=== PATIENT | female | born 1975 | race Caucasian/White ===

== ENCOUNTER 2024-02-05 15:39 | Emergency (ER) | payer OTHER, SELFPAY ==
--- NOTE | ~2024-02-05 | CT_ITS ---
CLINICAL INDICATION: Rectal pain. COMPARISON: None. TECHNIQUE: Computed tomography (CT) of the pelvis was performed following the administration of 100 m L of Omnipaque 350 intravenous contrast. The dose-length product was 152.52 mGy-cm. FINDINGS/OBSERVATIONS: Gastrointestinal tract: Moderate fecal stasis Appendix:The appendix is not definitively visualized. However, no pericecal inflammatory change is id entified suggest the presence of acute appendicitis. Vasculature: Unremarkable Lymph nodes: No pathologically enlarged or morphologically within the visualized retroperitoneum or p carol. Pelvic structures: Intrauterine device is present. The bladder is decompressed, and otherwise unremarkable. Body wall and musculoskeletal: No abnormal attenuation or contrast enhancement within the rectum or surrounding soft tissues. IMPRESSION: Unremarkable contrast-enhanced CT examination of the pelvis, as detailed above. Reviewed, dictated and finalized at location [facility]
[2024-02-05 16:02] VITALS: BP 168/99; PULSE 56; RESP 18; TEMP 36.3; O2SAT 100
--- NOTE | 2024-02-05 16:54 | ED.GENADULT ---
HPI - General Adult General Chief complaint: Unspecified <ALYSSA Gautam Last Filed: 02/05/24 17:09> Stated complaint: in so much pain <ALYSSA Gautam Last Filed: 02/05/24 17:09> Time Seen by Provider: 02/05/24 16:54 <Ivone Wood PA-C - Last Filed: 02/05/24 17:09> Focused HPI: Patient is 48-year-old female who presents the ED with report of rectal pain. 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 She saw a GI specialist at [facility] at that time and was offered surgery which she declined at that time. Has been using Lidocaine creams, stool softeners, has lost weight and changed her diet. States it had been healing and doing better, but she recently ate fried chicken and meatloaf and states it has torn her apart. She feels the wound has reopened and is very raw. C/o pain with sitting, walking, having BMs. Denies bleeding. Denies fevers. Denies abd pain. GENERAL: Mildly uncomfortable-appearing, thin, and in no acute distress. HEAD: Normocephalic, atraumatic. CHEST: Clear to auscultation. ?No respiratory distress. HEART: Regular rate and rhythm.? NEURO: ?Alert and oriented x3. Patient screened in triage and initial orders placed.? ?Additional care and disposition to be based upon?diagnostic testing and treatment. <Ivone Wood PA-C - Last Filed: 02/05/24 17:09> Focused HPI: Patient is 48-year-old female who presents to the ED with report of rectal pain. 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 She saw a GI specialist at [facility] at that time and was offered surgery which she declined at that time. Has been using Lidocaine creams, stool softeners, has lost weight and changed her diet. States it had been healing and doing better, but she recently ate fried chicken and meatloaf and states it has torn her apart. She feels the wound has reopened and is very raw. C/o pain with sitting, walking, having BMs. Denies bleeding. Denies fevers. Denies abd pain. GENERAL: Mildly uncomfortable-appearing, thin, and in no acute distress. HEAD: Normocephalic, atraumatic. CHEST: Clear to auscultation. ?No respiratory distress. HEART: Regular rate and rhythm.? NEURO: ?Alert and oriented x3. Patient screened in triage and initial orders placed.? ?Additional care and disposition to be based upon?diagnostic testing and treatment. <Scarlet Reese PA-C - Last Filed: 02/05/24 19:17> Source: patient <Ivone Wood PA-C - Last Filed: 02/05/24 17:09> Mode of arrival: ambulatory <ALYSSA Gautam Last Filed: 02/05/24 17:09> Limitations: no limitations <ALYSSA Gautam Last Filed: 02/05/24 17:09> Related Data Home medications: Home Medications Medication Instructions Recorded Confirmed antiarthritic combination no.2 900 mg PO DAILY 07/17/20 mg tablet (glucosamine-chondroitin) cholecalciferol (vitamin D3) 25 25 mcg PO DAILY 07/17/20 mcg (1,000 unit) capsule <ALYSSA Gautam Last Filed: 02/05/24 17:09> Allergies/adverse reactions: Allergies Allergy/AdvReac Type Severity Reaction Status Date / Time No Known Allergies Allergy Verified 04/17/20 09:59 <Ivone Wood PA-C - Last Filed: 02/05/24 17:09> Review of Systems Review of Systems: CONSTITUTIONAL: Denies fever GASTROINTESTINAL: Denies abdominal pain, nausea, vomiting <Scarlet Reese PA-C - Last Filed: 02/05/24 19:17> All systems reviewed & are unremarkable except as noted in HPI and below <Scarlet Reese PA-C - Last Filed: 02/05/24 19:17> [facility] Past Medical History Medical History: Medical History (Updated 02/05/24 @ 19:06 by Scarlet Reese PA-C) Depression Vitamin deficiency <ALYSSA Gautam Last Filed: 02/05/24 17:09> Social History Social History: Social History Smoking status: Never smoker Tobacco type: smokeless tobacco Alcohol intake: current Alcohol use details: wine socially Occupation/Education: occupation Additional occupation/education comments: [employer] Gender identity (if verbalized by the patient): Female <ALYSSA Gautam Last Filed: 02/05/24 17:09> Exam Narrative: GENERAL: Well-appearing, well-nourished, and in no acute distress. HEAD: Normocephalic, atraumatic. EYES: EOMI. EXTREMITIES: Normal range of motion. No edema. SKIN: Warm, dry, no rash. NEURO: No focal deficits. Alert and oriented x3. PSYCH: Normal mood and affect RECTAL: No obvious external hemorrhoids or fissures. Skin tag present <ALYSSA Lizama Last Filed: 02/05/24 19:17> Course Course Emergency Course: Patient updated on her workup and agrees with plan of care <ALYSSA Lizama Last Filed: 02/05/24 19:17> Vital Signs Vital signs: Vital Signs Temperature 97.4 F L 02/05/24 16:02 Pulse Rate 56 L 02/05/24 16:02 Respiratory Rate 18 02/05/24 16:02 Blood Pressure 168/99 H 02/05/24 16:02 Pulse Oximetry 100 02/05/24 16:02 Oxygen Delivery Room Air 02/05/24 16:02 Temperature 97.4 F L 02/05/24 16:02 Pulse Rate 88 02/05/24 18:00 Respiratory Rate 14 02/05/24 18:00 Blood Pressure 141/89 H 02/05/24 18:00 Pulse Oximetry 98 02/05/24 18:00 Oxygen Delivery Room Air 02/05/24 18:00 <ALYSSA Gautam Last Filed: 02/05/24 17:09> Vital Signs Temperature 97.4 F L 02/05/24 16:02 Pulse Rate 56 L 02/05/24 16:02 Respiratory Rate 18 02/05/24 16:02 Blood Pressure 168/99 H 02/05/24 16:02 Pulse Oximetry 100 02/05/24 16:02 Oxygen Delivery Room Air 02/05/24 16:02 Temperature 97.4 F L 02/05/24 16:02 Pulse Rate 88 02/05/24 18:00 Respiratory Rate 14 02/05/24 18:00 Blood Pressure 141/89 H 02/05/24 18:00 Pulse Oximetry 98 02/05/24 18:00 Oxygen Delivery Room Air 02/05/24 18:00 <Scarlet Reese PA-C - Last Filed: 02/05/24 19:17> Medical Decision Making MDM Narrative Medical decision making narrative: MSE by NICK in triage. <ALYSSA Gautam Last Filed: 02/05/24 17:09> MSE by NICK in triage. Patient presents to the emergency department for rectal pain. Reports earlier this year she was diagnosed with a fissure. Has seen Gastroenterology for this. She is afebrile and nontoxic appearing. CBC with mild leukocytosis to 10.3. Metabolic panel with normal appearing kidney function. CT of the pelvis is without acute findings. Patient was instructed on continued care constipation. 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 She was given warnings to return to the ER <ALYSSA Lizama Last Filed: 02/05/24 19:17> Differential Diagnosis Differential Diagnosis: Fissure, hemorrhoid <ALYSSA Lizama Last Filed: 02/05/24 19:17> Vital Signs Vital Signs: Vital Signs Temperature 97.4 F L 02/05/24 16:02 Pulse Rate 56 L 02/05/24 16:02 Respiratory Rate 18 02/05/24 16:02 Blood Pressure 168/99 H 02/05/24 16:02 Pulse Oximetry 100 02/05/24 16:02 Oxygen Delivery Room Air 02/05/24 16:02 Temperature 97.4 F L 02/05/24 16:02 Pulse Rate 88 02/05/24 18:00 Respiratory Rate 14 02/05/24 18:00 Blood Pressure 141/89 H 02/05/24 18:00 Pulse Oximetry 98 02/05/24 18:00 Oxygen Delivery Room Air 02/05/24 18:00 <Ivone Wood PA-C - Last Filed: 02/05/24 17:09> Vital Signs Temperature 97.4 F L 02/05/24 16:02 Pulse Rate 56 L 02/05/24 16:02 Respiratory Rate 18 02/05/24 16:02 Blood Pressure 168/99 H 02/05/24 16:02 Pulse Oximetry 100 02/05/24 16:02 Oxygen Delivery Room Air 02/05/24 16:02 Temperature 97.4 F L 02/05/24 16:02 Pulse Rate 88 02/05/24 18:00 Respiratory Rate 14 02/05/24 18:00 Blood Pressure 141/89 H 02/05/24 18:00 Pulse Oximetry 98 02/05/24 18:00 Oxygen Delivery Room Air 02/05/24 18:00 <ALYSSA Lizama Last Filed: 02/05/24 19:17> Lab Data Lab results reviewed: Yes I reviewed the patient's lab results. <Scarlet Reese PA-C - Last Filed: 02/05/24 19:17> Result diagrams: 02/05/24 17:40 02/05/24 17:40 <ALYSSA Gautam Last Filed: 02/05/24 17:09> Labs: Lab Results 02/05/24 02/05/24 Range/Units 17:40 18:11 WBC 10.3 H (4.5-10.0) K/mm3 RBC 4.64 (4.2-5.4) M/mm3 Hgb 14.7 (12.0-15.0) g/dL Hct 42.9 (37.0-47.0) % MCV 92.5 (80-100) fl MCH 31.7 (26-34) pg MCHC 34.3 (32-36) g/dl RDW 12.7 (11.5-14.5) % Plt Count 307 (150-375) k/mm3 MPV 10.0 (7.4-10.4) fl Immature Gran % (Auto) 0.3 (0-0.5) % Neut % (Auto) 65.8 (45.5-73.1) % Lymph % (Auto) 24.6 (18.3-44.2) % Ellis % (Auto) 6.7 (2.6-8.5) % Eos % (Auto) 2.3 (0-4.4) % Baso % (Auto) 0.3 (0.2-1.2) % Lymph # (Auto) 2.54 (0.9-3.2) K/mm3 Ellis # (Auto) 0.7 H (0.1-0.6) K/mm3 Eos # (Auto) 0.2 (0-0.3) K/mm3 Baso # (Auto) 0.0 (0.0-0.1) K/mm3 Abs Immat Gran (auto) 0.03 (0.00-0.031) K/mm3 Absolute Neuts (auto) 6.8 H (1.3-6.7) K/mm3 Absolute Nucleated RBC 0.000 (0.0-0.012) K/mm3 Nucleated RBC % 0.0 (0.0-0.2) % Sodium 138 (137-145) mmol/L Potassium 3.8 (3.4-5.0) mmol/L Chloride 103 (98-107) mmol/L Carbon Dioxide 27 (22-30) mmol/L Anion Gap 8 (4-12) mmol/L BUN 17 (7-17) mg/dL Creatinine 0.90 (0.7-1.0) mg/dL Estim Creat Clear Calc 51 ml/min Estimated GFR > 60 (59 - ) Glucose 93 (65-110) mg/dL Calcium 9.6 (8.4-10.2) mg/dL POC Urine HCG, Qual Negative (Negative) <Ivone Wood PA-C - Last Filed: 02/05/24 17:09> Lab Results 02/05/24 02/05/24 Range/Units 17:40 18:11 WBC 10.3 H (4.5-10.0) K/mm3 RBC 4.64 (4.2-5.4) M/mm3 Hgb 14.7 (12.0-15.0) g/dL Hct 42.9 (37.0-47.0) % MCV 92.5 (80-100) fl MCH 31.7 (26-34) pg MCHC 34.3 (32-36) g/dl RDW 12.7 (11.5-14.5) % Plt Count 307 (150-375) k/mm3 MPV 10.0 (7.4-10.4) fl Immature Gran % (Auto) 0.3 (0-0.5) % Neut % (Auto) 65.8 (45.5-73.1) % Lymph % (Auto) 24.6 (18.3-44.2) % Ellis % (Auto) 6.7 (2.6-8.5) % Eos % (Auto) 2.3 (0-4.4) % Baso % (Auto) 0.3 (0.2-1.2) % Lymph # (Auto) 2.54 (0.9-3.2) K/mm3 Ellis # (Auto) 0.7 H (0.1-0.6) K/mm3 Eos # (Auto) 0.2 (0-0.3) K/mm3 Baso # (Auto) 0.0 (0.0-0.1) K/mm3 Abs Immat Gran (auto) 0.03 (0.00-0.031) K/mm3 Absolute Neuts (auto) 6.8 H (1.3-6.7) K/mm3 Absolute Nucleated RBC 0.000 (0.0-0.012) K/mm3 Nucleated RBC % 0.0 (0.0-0.2) % Sodium 138 (137-145) mmol/L Potassium 3.8 (3.4-5.0) mmol/L Chloride 103 (98-107) mmol/L Carbon Dioxide 27 (22-30) mmol/L Anion Gap 8 (4-12) mmol/L BUN 17 (7-17) mg/dL Creatinine 0.90 (0.7-1.0) mg/dL Estim Creat Clear Calc 51 ml/min Estimated GFR > 60 (59 - ) Glucose 93 (65-110) mg/dL Calcium 9.6 (8.4-10.2) mg/dL POC Urine HCG, Qual Negative (Negative) <Scarlet Reese PA-C - Last Filed: 02/05/24 19:17> Imaging Data Radiologist's impression: ITS Impressions Pelvis CT 02/05/24 18:40 IMPRESSION: Unremarkable contrast-enhanced CT examination of the pelvis, as detailed above. <ALYSSA Lizama Last Filed: 02/05/24 19:17> Critical Care Time Critical Care Time Critical Care Time: No <Scarlet Reese PA-C - Last Filed: 02/05/24 19:17> Discharge Plan Discharge Clinical Impression: Anal or rectal pain <ALYSSA Gautam Last Filed: 02/05/24 17:09> Patient Disposition: Home, Self-Care <ALYSSA Gautam Last Filed: 02/05/24 17:09> Condition: Stable <ALYSSA Gautam Last Filed: 02/05/24 17:09> Instructions: Rectal Pain (ED) <ALYSSA Gautam Last Filed: 02/05/24 17:09> Additional Instructions: Return to the ER if you experience fever, abdominal pain with nausea and vomiting, redness and swelling of the area, blood in the stool, or any other symptoms that are concerning to you Remain well hydrated. Increase fruit and vegetables in your diet. Apply vitamin E cream to the area twice daily as needed for discomfort Follow up with your flight engineer helicopter <ALYSSA Gautam Last Filed: 02/05/24 17:09> Prescriptions: New vitamin E Cream 1 applic topical QAM AND QHS PRN (Reason: skin irritation) Qty: 57 0RF No Action cholecalciferol (vitamin D3) 25 mcg (1,000 unit) capsule 25 mcg PO DAILY glucosamine-chondroitin 900 mg tablet PO DAILY <ALYSSA Gautam Last Filed: 02/05/24 17:09> Follow-up/Referrals: Francheska,Cristal Hines NP [Primary Care Provider] - <ALYSSA Gautam Last Filed: 02/05/24 17:09>
[2024-02-05 17:49] LABS: Basophils Percent Auto 0.3 % (0.2-1.2); Eosinophils Absolute Auto 0.2 K/mm3 (0-0.3); Eosinophils Percent Auto 2.3 % (0-4.4); Hematocrit 42.9 % (37.0-47.0); Hemoglobin 14.7 g/dL (12.0-15.0); Immature Granulocyte Absolute 0.03 K/mm3 (0.00-0.031); Immature Granulocyte Percent A 0.3 % (0-0.5); Lymphocytes Absolute Auto 2.54 K/mm3 (0.9-3.2); Lymphocytes Percent Auto 24.6 % (18.3-44.2); Mean Corpuscular HGB Conc 34.3 g/dl (32-36); Mean Corpuscular Hemoglobin 31.7 pg (26-34); Mean Corpuscular Volume 92.5 fl (80-100); Monocytes Absolute Auto 0.7 K/mm3 (0.1-0.6); Monocytes Percent Auto 6.7 % (2.6-8.5); Neutrophils Absolute Auto 6.8 K/mm3 (1.3-6.7); Neutrophils Percent Auto 65.8 % (45.5-73.1); Platelet Count Result 307 k/mm3 (150-375); Red Blood Count 4.64 M/mm3 (4.2-5.4); Red Cell Distribution Width 12.7 % (11.5-14.5); White Blood Count 10.3 K/mm3 (4.5-10.0)
[2024-02-05 17:59] LABS: Anion Gap 8 mmol/L (4-12); Blood Urea Nitrogen 17 mg/dL (7-17); Calcium 9.6 mg/dL (8.4-10.2); Carbon Dioxide 27 mmol/L (22-30); Chloride 103 mmol/L (98-107); Estimated CRCL calculation 51 ml/min; Estimated Glomerular Filt Rate > 60; Glucose 93 mg/dL (65-110); Potassium 3.8 mmol/L (3.4-5.0); Sodium 138 mmol/L (137-145)
[2024-02-05 18:00] VITALS: BP 141/89; PULSE 88; RESP 14; O2SAT 98
[2024-02-05] MEDS: HYDROcodone/acetaminophen (*CRX) 5-325 MG TABLET 1 TAB PO (18:09)
[2024-02-05 18:13] LABS: BEDSIDEPREGUCG Negative (Negative)
== END 2024-02-05 19:28 | disposition home or self-care (01) ==
PROVIDERS: Physician Assistant; Emergency Provider Physician Assistant; PCP Nurse Practitioner Obstetrics & Gynecology
DX: K62.89 Other specified diseases of anus and rectum (principal); E56.9 Vitamin deficiency, unspecified; F17.220 Nicotine dependence, chewing tobacco, uncomplicated
CPT/HCPCS: 36415; 72193; 80048; 81025; 85025; 99284; A9270; Q9967

== ENCOUNTER 2024-02-25 21:07 | Emergency (ER) | payer OTHER, SELFPAY ==
--- NOTE | 2024-02-25 23:17 | ED.WOUNDLAC ---
HPI - Wound/Laceration General Chief Complaint: Wound/Laceration Stated Complaint: sliced finger while cuttign onion Time Seen by Provider: 02/25/24 22:15 Source: patient Mode of arrival: ambulatory Limitations: no limitations History of Present Illness HPI narrative: This is a 48 year old female that presents to the ER for a laceration to the left ring finger. Sustained while cutting onions. She was not able to get the bleeding to stop at home which prompted her to be seen. She is unsure of her last tetanus vaccination. Denies decreased ROM or numbness. Related Data Home Medications Medication Instructions Recorded Confirmed antiarthritic combination no.2 900 mg PO DAILY 07/17/20 mg tablet (glucosamine-chondroitin) cholecalciferol (vitamin D3) 25 25 mcg PO DAILY 07/17/20 mcg (1,000 unit) capsule Allergies Allergy/AdvReac Type Severity Reaction Status Date / Time No Known Allergies Allergy Verified 04/17/20 09:59 Review of Systems Review of Systems: CONSTITUTIONAL: Denies fever SKIN: Reports laceration NEUROLOGIC: Denies numbness All systems reviewed & are unremarkable except as noted in HPI and below PMFSH Past Medical History Medical History (Updated 02/26/24 @ 00:26 by Scarlet Reese PA-C) Depression Vitamin deficiency Social History Social History Smoking status: Never smoker Tobacco type: smokeless tobacco Alcohol intake: current Alcohol use details: wine socially Occupation/Education: occupation 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 HEAD: Normocephalic, atraumatic. EYES: EOMI. EXTREMITIES: Normal range of motion. No edema. Small skin avulsion tip of the left 4th finger SKIN: Warm, dry, no rash. NEURO: No focal deficits. Alert and oriented x3. PSYCH: Normal mood and affect Course Course Emergency Course: patient educated on further wound care Vital Signs Vital signs: Vital Signs Temperature 97.9 F 02/25/24 23:21 Pulse Rate 54 L 02/25/24 23:21 Respiratory Rate 14 02/25/24 23:21 Blood Pressure 132/70 02/25/24 23:21 Pulse Oximetry 99 02/25/24 23:21 Temperature 97.9 F 02/25/24 23:21 Pulse Rate 54 L 02/25/24 23:21 Respiratory Rate 14 02/25/24 23:21 Blood Pressure 132/70 02/25/24 23:21 Pulse Oximetry 99 02/25/24 23:21 Procedures Laceration Laceration 1: Date: 02/26/24 Time: 00:30 Site: hand Side (If applicable): left Size (cm): 1 Description: other ( avulsion) Depth: simple, single layer Pre-repair: irrigated ====== Skin Level ====== ====== Subcutaneous Layer ====== ====== Muscle Layer ====== ====== Tendon Layer ====== Dressing: wound irrigated and bleeding controlled with Surgicel MDM - Wound/Laceration MDM Narrative Medical decision making narrative: patient presents to the emergency department for a skin avulsion. Wound irrigated and bleeding controlled with Surgicel. Updated on tetanus vaccination. Educated on further wound care. She was given warnings to return to the ER Differential Diagnosis Differential diagnosis: Likely laceration, abrasion and avulsion of skin Critical Care Time Critical Care Time Critical Care Time: No Discharge Plan Discharge Clinical Impression: Avulsion of skin Patient Disposition: Home, Self-Care Condition: Stable Instructions: Antibiotic Form, Skin Avulsion (ED) Additional Instructions: Return to the emergency department if you experience fever, redness or swelling of your wound, abnormal drainage from your wound, or any other symptoms that are concerning to you. Leave your entire bandage in place until tomorrow night. Leave the bottom layer of hemostatic gauze on until if falls off. When it does clean the area with mild soap and water and apply antibiotic ointment and a nonstick bandage. Take oral antibiotic as prescribed to prevent infection Follow-up with your primary care doctor for wound check Prescriptions: New cephalexin 500 mg capsule 500 mg PO Q8H 5 Days Qty: 15 0RF No Action cholecalciferol (vitamin D3) 25 mcg (1,000 unit) capsule 25 mcg PO DAILY glucosamine-chondroitin 900 mg tablet PO DAILY vitamin E Cream 1 applic topical QAM AND QHS PRN (Reason: skin irritation) Qty: 57 0RF Follow-up/Referrals: Marco,MD Tomasz [Primary Care Provider] -
[2024-02-25 23:21] VITALS: BP 132/70; PULSE 54; RESP 14; TEMP 36.6; O2SAT 99
[2024-02-25] MEDS: TETANUS,DIPHTHERIA,AC PERTUSSIS ADULT (0.5 ML) BOOSTRIX IM (23:31)
[2024-02-26 00:36] VITALS: BP 125/75; PULSE 74; RESP 14; TEMP 36.9; O2SAT 99
== END 2024-02-26 00:37 | disposition home or self-care (01) ==
PROVIDERS: Emergency Provider Physician Assistant; PCP Family Medicine
DX: S61.215A Laceration without foreign body of left ring finger without damage to nail, initial encounter (principal); Z23 Encounter for immunization; E55.9 Vitamin D deficiency, unspecified; F17.220 Nicotine dependence, chewing tobacco, uncomplicated; W26.0XXA Contact with knife, initial encounter; Y93.G1 Activity, food preparation and clean up
CPT/HCPCS: 90471; 90715; 99283; J2003

== ENCOUNTER 2024-11-26 19:26 | Emergency (ER) | payer OTHER, SELFPAY ==
[2024-11-26 19:37] VITALS: BP 120/85; PULSE 67; RESP 67; TEMP 36.4; O2SAT 98
--- NOTE | 2024-11-26 19:40 | ED_ITS ---
HPI - URI/Sore Throat General Chief Complaint: Upper Respiratory Infection Stated Complaint: COLD/COUGH Time Seen by Provider: 11/26/24 19:40 Source: patient Mode of arrival: ambulatory Limitations: no limitations History of Present Illness HPI Narrative: 49-year-old female presents with complaint of nasal congestion, sinus pressure, postnasal drainage, chest congestion, coughing for 7 8 days. Afebrile. Take ov [id number] DayQuil NyQuil cold and flu without relief of symptoms. For breath with exertion. No sore throat. Denies nausea vomiting. No chest pain or shortness breath. All systems reviewed and negative except as noted. Related Data Home Medications ?Medication ?Instructions ?Recorded ?Confirmed ?Last Taken ?Type antiarthritic combination no.2 900 mg PO DAILY 1 Unknown History mg tablet (glucosamine-chondroitin) cholecalciferol (vitamin D3) 25 25 mcg PO DAILY Unknown History mcg (1,000 unit) capsule Allergies Allergy/AdvReac Type Severity Reaction Status Date / Time No Known Allergies Allergy Verified 11/26/24 19:43 [facility] Past Medical History Medical History (Updated 11/26/24 @ 19:48 by Sofia Daugherty NP) Depression Vitamin deficiency Social History Social History Smoking status: Never smoker Tobacco type: smokeless tobacco Alcohol intake: current Alcohol use details: wine socially Occupation/Education: occupation Additional occupation/education comments: [employer] Gender identity (if verbalized by the patient): Female Comments At time of signature, agree with nursing past medical, surgical, social and family history. There is no relevant family history pertinent to the presenting complaint. Exam Narrative: GENERAL: This is a well-nourished, well-developed patient, in no apparent distress. HEAD: normocephalic, atraumatic. EYES: PERRL. Sclera clear/white. Vision is grossly intact. EARS: External ears normal, auditory canals clear and without drainage, TMs normal without perforation. Hearing grossly intact. NOSE: External nose normal with no clear nasal drainage, reports frontal sinus tenderness on palpation. THROAT: Mucous membranes moist, erythema postnasal drainage NECK: Neck supple, non-tender without lymphadenopathy, masses or thyromegaly. CARDIOVASCULAR: Regular rate and rhythm without murmurs, gallops, or rubs. RESPIRATORY: Clear to auscultation. Breath sounds equal bilaterally. No wheezes, rales, or rhonchi. Cough is harsh and wet sounding SKIN: warm, Dry, intact with no suspicious lesions or rash, good texture and turgor. NEURO: awake, alert, and oriented to person, place and time. There were no obvious focal neurologic abnormalities. EXTREMITIES: No joint tenderness, effusion, or edema noted. Course Course Level of Care: Express Care Visit Vital Signs Vital signs: Vital Signs Temperature 36.4 C L 11/26/24 19:37 Pulse Rate 67 11/26/24 19:37 Respiratory Rate 67 H 11/26/24 19:37 Blood Pressure 120/85 11/26/24 19:37 Pulse Oximetry 98 11/26/24 19:37 Temperature 36.4 C L 11/26/24 19:37 Pulse Rate 67 11/26/24 19:37 Respiratory Rate 67 H 11/26/24 19:37 Blood Pressure 120/85 11/26/24 19:37 Pulse Oximetry 98 11/26/24 19:37 Reviewed MDM - URI/Sore Throat MDM Narrative Medical decision making narrative: Patient is well-appearing, nontoxic. Will treat with doxycycline. Patient agrees with care. Differential Diagnosis Differential diagnosis: Likely upper respiratory infection, sinusitis, viral infection and bronchitis Discharge Plan Discharge Clinical Impression: Acute bronchitis Qualifiers: Bronchitis organism: unspecified organism Qualified Code(s): J20.9 - Acute bronchitis, unspecified Patient Disposition: Home Condition: Stable Instructions: Antibiotic Form, Acute Bronchitis (ED) Additional Instructions: Take medications as prescribed. Take Tylenol or ibuprofen every 6-8 hours as needed pain. Drink plenty of water and rest. See your doctor if improving. Patient Language: [place] Prescriptions: New doxycycline hyclate 100 mg capsule 100 mg PO BID 7 Days Qty: 14 0RF benzonatate 200 mg capsule 200 mg PO TID PRN (Reason: cough) Qty: 20 0RF methylprednisolone [Medrol (Bairon)] 4 mg tablets,dose pack See Rx Instructions PO .COMPLEX Qty: 21 0RF Rx Instructions: orally per package directions No Action cholecalciferol (vitamin D3) 25 mcg (1,000 unit) capsule 25 mcg PO DAILY glucosamine-chondroitin 900 mg tablet PO DAILY vitamin E Cream 1 applic topical QAM AND QHS PRN (Reason: skin irritation) Qty: 57 0RF Follow-up/Referrals: Marco,MD Tomasz [Primary Care Provider, Unknown] Time of Disposition: 19:49
== END 2024-11-26 19:54 | disposition home or self-care (01) ==
PROVIDERS: Emergency Provider Nurse Practitioner Family; PCP Family Medicine
DX: J20.9 Acute bronchitis, unspecified (principal)
CPT/HCPCS: 99213; G0463